=== PATIENT | male | born 1980 | race Caucasian/White ===

== ENCOUNTER 2018-10-09 08:21 | Day surgery (SDC) | payer OTHER, SELFPAY ==
[2018-10-09] VITALS (9 sets, daily range): BP systolic 106–126; BP diastolic 64–87; PULSE 61–91; RESP 10–21; TEMP 36.3–36.8; O2SAT 97–100; BMI 25.8
[2018-10-09] MEDS: LACTATED RINGERS 1,000 ML 42 ML IV (08:40)
--- NOTE | 2018-10-09 08:45 | PM.HP.1 ---
History of Present Illness Date Patient Seen: 10/09/18 Time Patient Seen: 08:46 Chief complaint: 62253/HERNIA Narrative: 38-year-old male who presented with left a groin mass recently and associated pain. Mass was reducible however when he was supine. He had no nausea or vomiting. Continues to have no issues with such. Nevertheless he continues to have pressure and occasional persistent discomfort in the groin area radiating to the testicle when he is performing exercise or strenuous activity. No difficulties with urination or bowel function. No fever or chills. No symptoms in the right inguinal region. Patient History Family & Social History Social History: household members spouse,children Tobacco & Substance use: Smoking Status Current some day smoker alcohol intake never Meds Home Medications Medication Instructions Recorded Confirmed Type No Known Home Medications 10/09/18 10/09/18 History Allergies Allergy/AdvReac Type Severity Reaction Status Date / Time No Known Drug Allergies Allergy Verified 10/09/18 08:34 Review of Systems Review of Systems All systems reviewed & are unremarkable except as noted in HPI and below Exam Vital Signs (past 8 hours): - 10/09/18 08:38 Temperature 97.5 F L Pulse Rate 72 Respiratory Rate 15 Blood Pressure 126/82 Pulse Oximetry 100 Oxygen Delivery Method Room Air Narrative Exam Narrative: Well-nourished well-developed male in no acute distress. Alert oriented x3 Sclera nonicteric Chest clear to auscultation without wheezes. Regular rate and rhythm Abdomen soft, nondistended, nontender Extremities show no clubbing or cyanosis Left inguinal hernia remains unchanged compared to his examination in August 2018. Lesion is reducible but tender on palpation. Testicles are descended. Well-healed left inguinal scar consistent with prior hernia repair at age 7 years. Extremities show no clubbing, cyanosis, or edema Objective Labs Labs: No new laboratory or radiographic studies for review Assessment & Plan Assessment & Plan narrative: 38-year-old male with symptomatic reducible left inguinal hernia. Hernias actually recurrent as it was repaired when he was a child. Discussed technical details once again of open left inguinal hernia repair with mesh. Risks, benefits, alternatives were reiterated. Postoperative restrictions were again reviewed. All questions were answered to his satisfaction, and he voiced understanding. Consent was placed on the chart. We will proceed today as planned. Again, his history physical examination otherwise has remained unchanged from August 2018.
--- NOTE | 2018-10-09 08:49 | PM.PREOP ---
Pre-operative Note Interval Note History & Physical reviewed/Exam performed by Physician: Yes Changes to H&P: No H&P completed within 30 days and has changed as indicated here:: Patient seen and examined once again in the preoperative area. He is marked for surgery accordingly. History physical examination updated today and on the chart. Obviously no changes from this morning. Proceed today with left inguinal hernia repair as planned.
[2018-10-09] MEDS: CEFAZOLIN 2 GM/100 ML FROZ.PIGGY IV (08:58)
--- NOTE | 2018-10-09 09:20 | SUR.OPER ---
Supine on padded OR bed, head on pillow, arms secured on padded arm boards at <90 degrees abduction, legs uncrossed, safety belt at thigh, tape over blanket over lower legs.
[2018-10-09] MEDS: LIDOCAINE 1% W/EPI INJ 20 ML INJ (09:27)
[2018-10-09] MEDS: BUPIVACAINE 0.5% (PF) VIAL 30 ML INJ (09:27)
[2018-10-09] MEDS: CEFAZOLIN 1 GM VIAL IV (09:28)
--- NOTE | 2018-10-09 10:33 | P.OP_ITS ---
Operative Date/Time/Diagnoses Date of procedure: 10/09/18 Time of procedure: 10:26 Pre-op diagnosis: Symptomatic recurrent left inguinal hernia Post-op diagnosis: same Procedure & Clinicians Procedure: Open left inguinal hernia repair with mesh Same procedure as scheduled: Yes Indications: 38-year-old male who presented with intermittent left inguinal mass causing pain and discomfort. Examination and evaluation were consistent with reducible hernia. Hernia was actually recurrent as the patient had primary repair at the age of 7 years. Open repair with mesh was currently recommended. Surgeon: Tiago Caro Click Yes if Unassisted: Yes Anesthesia Type: General Operative Notes Findings: 1. Left indirect hernia 2. No evidence of left direct hernia 3. Intact left ilioinguinal nerve 4. Testicles are normal descended position bilaterally at the conclusion of the case Closure Type: primary Specimen(s): none sent Prosthetic devices, grafts, tissues, transplants, or devices: Small Pro Loop polypropylene mesh plug and patch left inguinal canal Applied: other (As above) Estimated Blood Loss (mL): 5 Blood products transfused: none Procedure in detail: After obtaining informed consent the patient was brought to the operating room placed supine on the table. After satisfactory induction of anesthesia the abdomen and genitalia were prepped and draped in usual sterile f ashion. SCOA time out was performed per standard protocol. Patient's existing left inguinal scar was identified and infiltrated with a 1: 1 mixture 1% lidocaine with 1: 100,000 epinephrine and 0.5% plain Marcaine for postoperative analgesia. Skin incision was created with 10 scalpel blade and the Bovie was used to achieve hemostasis. Dissection was carried down carefully through the subcutaneous tissue and existing scar to the level the external oblique fascia. Exposure was achieved with a Weitlaner retractor. External oblique fascia was divided in the direction of its fibers with a 15 scalpel blade followed by Metzenbaum scissors through the level of the external inguinal ring. Great care was taken to avoid injury to underlying structures. Edges of the fascia were secured with hemostats and elevated into the operative field. Ilioinguinal nerve was identified and noted to be intact but scarred into the external oblique fascia. Meticulous gentle sharp dissection with Metzenbaum scissors liberated the nerve and it was retracted out of the operative field. Great care was taken avoid injury to the structure throughout the entire case. Further blunt dissection revealed the iliopubic tract, conjoined tendon, and rectus fascia. The spermatic cord was encircled bluntly with the surgeon's fingers followed by a Hollywood drain. Meticulous blunt dissection using DeBakey forceps was employed to skeletonize the spermatic cord. A few cremasteric fibers were divided with the Bovie. Findings are as above. Indirect hernia sac was mobilized from surrounding connective tissue and easily reduced back into the abdominal cavity. Mesh was brought onto the operative field and soaked in Ancef solution. Plug was then placed in the internal inguinal ring and secured circumferentially to adjacent tissue with interrupted 2 0 Vicryl suture. Onlay patch was then brought onto the operative field and secured circumferentially with interrupted 0 Ethibond suture. Anteriorly the mesh was secured to the conjoined tendon while laterally was secured to the iliopubic tract. Medially the mesh was secured to the rectus fascia, and the tails of the mesh were brought around the spermatic cord then placed deep to the external oblique fascia. Tails were cut to appropriate size and secured with a single 0 Ethibond suture. Great care was taken to avoid strangulation of the spermatic cord by the mesh. The defect easily admitted the tip of the surgeon's examining finger. Wound was irrigated and hemostasis noted. Spermatic cord was replaced into its usual anatomic position along with the ilioinguinal nerve. External oblique fascia was closed over the cord using running 3 0 Vicryl suture. Subcutaneous tissue was reapproximated with interrupted 3 0 Vicryl suture as well. Skin was closed in running subcuticular fashion with 4 0 Monocryl suture. Dermal adhesive was applied. Anesthesia was reversed and patient extubated in the operating room. He was taken recovery stable condition. Complications: none Condition: stable Disposition: PACU Plan for aftercare: 1. Discharge home 2. Follow up in surgery Clinic in 2 weeks
--- NOTE | 2018-10-09 10:42 | SUR.PHASEI ---
aroused spontaneously, decilnes PO, denies pain. Returned to sleep. Resp even and regular, skin warm and dry.
--- NOTE | 2018-10-09 11:00 | SUR.PHASEI ---
1155 to room 5, bed down, locked, call light within reach. coming to room w/volunteer. VS being taken by SALES SERVICE SUPERVISOR. Report given to RN and SALES SERVICE SUPERVISOR. Awake/drowsy. Oriented and comfortable.
== END 2018-10-09 11:51 | disposition home or self-care (01) ==
PROVIDERS: Visit Provider Surgery
PROC: (CPT 49520; principal; 2018-10-09 09:45)
DX: K40.90 Unilateral inguinal hernia, without obstruction or gangrene, not specified as recurrent (principal); F17.210 Nicotine dependence, cigarettes, uncomplicated
CPT/HCPCS: 49520; C1781; J0690; J1100; J2250; J2704; J3010

== ENCOUNTER 2020-03-05 22:49 | Emergency (ER) | payer OTHER, SELFPAY ==
[2020-03-05] VITALS (12 sets, daily range): BP systolic 113–163; BP diastolic 70–100; PULSE 51–57; RESP 13–18; TEMP 36.5; O2SAT 96–100
--- NOTE | 2020-03-05 23:06 | DI.RAD.S_ITS ---
PROCEDURE: XR CHEST 1V INDICATIONS: chest pain TECHNIQUE: One view of the chest was acquired. COMPARISON: None. FINDINGS: Surgical changes and devices: None. Lungs and pleura: Lungs are clear. No pleural effusions or pneumothorax. Mediastinum: Mediastinal contours appear normal. Heart size is normal. Bones and chest wall: No suspicious bony lesions. Overlying soft tissues appear unremarkable. IMPRESSION: No acute cardiopulmonary disease process. Dictated by: Roxanne Carlos MD, PhD on 03/06/2020 at 8:47 Approved by: Roxanne Carlos MD, PhD on 03/06/2020 at 8:48
[2020-03-05] MEDS: ASPIRIN 81 MG CHEW TAB 324 MG PO (23:13)
[2020-03-05] MEDS: NITROGLYCERIN 0.4 MG SL TAB SL (23:13)
[2020-03-05] MEDS: SODIUM CHLORIDE 0.9% 1,000 ML 150 ML IV (23:16)
[2020-03-05 23:19] LABS: Add Manual Diff / Slide Review NO; Basophils Absolute Auto 0 /uL (0-100); Basophils Percent Auto 0.7 % (0-2); Eosinophils Absolute Auto 100 /uL (0-450); Eosinophils Percent Auto 2.7 % (2-4); Hematocrit 42.4 % (41-53); Hemoglobin 14.2 g/dL (13.5-17.5); Lymphocytes Absolute Auto 1300 /uL (1100-4500); Lymphocytes Percent Auto 33.9 % (25-40); Mean Corpuscular HGB Conc 33.6 % (30-36); Mean Corpuscular Volume 92.2 fL (80-100); Monocytes Absolute Auto 400 /uL (0-900); Monocytes Percent Auto 10.6 % (3-14); Neutrophils Absolute Auto 1900 /uL (1500-7000); Neutrophils Percent Auto 52.1 % (50-75); Platelet Count 205 X10^3/uL (150-400); Red Blood Cell Count 4.59 X10^6/uL (4.5-5.9); Red Cell Distribution Width 13.4 % (11.6-14.8); White Blood Cell Count 3.7 X10^3/uL (4.5-11.0)
[2020-03-05 23:26] LABS: Alanine Aminotransferase 24 IU/L (<50); Albumin 4.4 g/dL (3.5-5.0); Albumin Globulin Ratio 1.5 (1.0-2.8); Alkaline Phosphatase 58 U/L (38-126); Aspartate Aminotransferase 46 IU/L (17-59); BUN Creatinine Ratio 29.4 (6-22); Bilirubin Total 0.5 mg/dL (0.2-1.3); Blood Urea Nitrogen 25 mg/dL (9-20); Calcium 9.6 mg/dL (8.4-10.2); Carbon Dioxide 32 mmol/L (22-32); Chloride 102 mmol/L (98-107); Creatine Kinase 156 U/L (55-170); Estimated Glomerular Filt Rate > 60.0 mL/min (>60); Glucose 102 mg/dL (70-100); HEMOLYSIS 17 (0-50); Lipase 102 U/L (23-300); Potassium 3.8 mmol/L (3.4-5.1); Sodium 138 mmol/L (137-145); Total Protein 7.4 g/dL (6.3-8.2)
[2020-03-05 23:29] LABS: C-Reactive Protein Quant < 0.5 mg/dL (<1.0)
[2020-03-05 23:34] LABS: D Dimer 757 ng/mL (<230)
[2020-03-05 23:38] LABS: Erythrocyte Sedimentation Rate 4 MM/HR (0-15); NT-proBNP (BNP-Adult 18+) 84 pg/mL (<125); Troponin I < 0.012 ng/mL (0.01-0.034)
[2020-03-05 23:41] LABS: CKMB % Relative Index 0.6 % (1.5-5.0)
[2020-03-06] VITALS (12 sets, daily range): BP systolic 110–121; BP diastolic 74–85; PULSE 46–51; RESP 11–21; O2SAT 96–99
--- NOTE | 2020-03-06 00:11 | ED_ITS ---
HPI - Chest Pain General Chief Complaint: Chest Pain Stated Complaint: Chest pain Time Seen by Provider: 03/05/20 22:50 Source: patient Mode of arrival: Ambulatory Limitations: no limitations History of Present Illness HPI narrative: 39M non smoker without any significant medical history presents with a chief complaint of a day and a half of gradually worsening left anterior chest pain. He states it radiates a bit across his anterior chest. He denies any dizziness, weakness or lightheadedness. He has no shortness of breath. He states that it seems to get worse when he takes big deep breath or moves. He de nies fever or chills. Denies cough or hemoptysis. He denies any recent travel or history of blood clot. [place] and had what sound like normal labs and EKGs and was given Toradol encouraged to follow up if needed. He denies any exposure to persons known to have COVID-19 MD complaint: chest pain Onset (ago): day(s) Duration: constant Onset: during rest Pain location: left chest Severity: moderate Quality: aching and sharp Pain radiation: none Relieving factors: nothing Exacerbating factors: supine Treatments prior to arrival chest pain: other Related Data Previous Rx's Medication Instructions Recorded gabapentin 300 mg capsule 300 mg PO BID #60 cap 12/17/18 amitriptyline 10 mg tablet 10 mg PO BEDTIME #30 tab 01/08/19 colchicine 0.6 mg PO BID 90 Days #180 cap 03/06/20 ibuprofen 800 mg PO TID PRN #20 tab 03/06/20 Allergies Allergy/AdvReac Type Severity Reaction Status Date / Time No Known Drug Allergies Allergy Verified 12/17/18 13:52 Review of Systems Constitutional Constitutional: Denies chills, Denies fatigue, Denies fever(s), Denies frequent falls, Denies lethargy and Denies weakness Eyes Eyes: Denies change in vision, Denies eye discharge, Denies irritation and Denies loss of vision ENT Ears, Nose, Mouth, and Throat: Denies change in voice, Denies dizziness, Denies neck pain, Denies sore throat and Denies throat swelling Cardiovascular Cardiovascular: Reports chest pain, Denies irregular heart rhythm, Denies lightheadedness, Denies palpitations, Denies dyspnea, Denies dyspnea on exertion and Denies orthopnea Respiratory Respiratory: Denies cough, Denies dyspnea, Denies dyspnea on exertion and Denies wheezing Gastrointestinal Gastrointestinal: Denies abdominal pain, Denies change in bowel habits, Denies diarrhea, Denies nausea and Denies vomiting Musculoskeletal Musculoskeletal: Denies neck pain and Denies numbness Integumentary/Breasts Skin/Breast: Denies pruritus, Denies erythema, Denies rash and Denies wounds Neurologic Neurologic: Denies behavioral changes, Denies confusion, Denies dizziness, Gerald es frequent falls, Denies loss of vision, Denies numbness and Denies weakness Psychiatric Psychiatric: Denies anxiety, Denies behavioral changes, Denies confusion, Denies depression, Denies homicidal ideation and Denies suicidal ideation Endocrine Endocrine: Denies fatigue, Denies flushing and Denies palpitations Hematologic/Lymphatic Hematologic/Lymphatic: Denies easy bruising Allergic/Immunologic Allergic/Immunologic: Denies urticaria, Denies throat swelling and Denies wheezing Patient History Medical History History of hydrocele (Acute) Spondylolisthesis (Acute) Surgical History History of hydrocelectomy (Acute) History of left inguinal hernia repair (Acute) Family History Grandfather Diabetes mellitus Social History marital status: household members: spouse and children occupational status: employed Smoking Status: Never smoker alcohol intake: never Smoking Status: Never smoker alcohol intake frequency: holidays/special occasions only Substance Use Type: does not use Exam Narrative Exam Narrative: GENERAL: [39] year old patient appears stated age. Well- nourished, well-developed patient, in mild distress. Obviously uncomfortable HEAD: Atraumatic. Normocephalic. EYES: Pupils equal round and reactive. Extraocular motions intact. No scleral icterus. No injection or drainage. ENT: Nose without bleeding, purulent drainage. Throat without erythema, tonsillar hypertrophy or exudate. Airway patent. NECK: Trachea midline. Non tender CARDIOVASCULAR: Regular rate and rhythm without murmurs, gallops, or rubs. RESPIRATORY: Clear to auscultation. Breath sounds equal bilaterally. No wheezes, rales, or rhonchi. GASTROINTESTINAL: Abdomen soft, non-tender, nondistended. EXTREMITIES: No edema or joint tenderness. BACK: Nontender without deformity or crepitance. No flank tenderness. NEURO: AOx3. SKIN: No rash or erythema of visible areas Initial Vital Signs Initial Vital Signs: Vital Signs Temperature 97.7 F 03/05/20 22:59 Pulse Rate 54 L 03/05/20 22:59 Respiratory Rate 16 03/05/20 22:59 Blood Pressure 163/100 H 03/05/20 22:59 Pulse Oximetry 100 03/05/20 22:59 Course Orders Ordered: ED Orders 03/05/20 22:57 C-Reactive Protein Quant Stat Complete Blood Count AUTO DIFF Stat Comprehensive Metabolic Panel Stat D Dimer Stat Erythrocyte Sedimentation Rate Stat Lipase Stat NT-proBNP (BNP-Adult 18+) Stat Troponin & CK Cardiac Panel Stat 03/05/20 23:06 XR chest 1V Stat 03/06/20 00:35 CT angio chest PE protocol Stat 03/06/20 01:28 Troponin I Stat Sodium Chloride (Normal Saline 0.9%) 1,000 mls @ 150 mls/hr IV CONT JHON Last Admin: 03/05/20 23:16 Dose: 150 mls/hr Documented by: TIM Nitroglycerin (Nitrostat) 0.4 mg SL [id number] PRN PRN Reason: Chest Pain Last Admin: 03/05/20 23:13 Dose: 0.4 mg Documented by: TIM Discontinued Medications Hydrocodone Bitart/Acetaminophen (Vicodin 5/325 Prepack) 1 bottle MISC SEEINSTR ONE Stop: 03/06/20 02:45 Aspirin (Aspirin Chew) 324 mg PO NOW ONE Stop: 03/05/20 23:07 Last Admin: 03/05/20 23:13 Dose: 324 mg Documented by: TIM Hydromorphone HCl (Dilaudid) 0.5 mg IV NOW ONE Stop: 03/06/20 00:25 Last Admin: 03/06/20 00:29 Dose: 0.5 mg Documented by: CATARINA Ketorolac Tromethamine (Toradol) 15 mg IV NOW ONE Stop: 03/06/20 00:00 Last Admin: 03/06/20 00:30 Dose: Not Given Documented by: CATARINA Consultations Consultation #1: Discussion with on-call Cardiology. She has reviewed the patient's story, labs an EKG and sure the opinion that this is pericarditis. Patient has near complete resolution of symptoms after above-stated therapies and is appropriate for discharge. She recommends colchicine 0.6 mg twice daily for 3 months and stress the need to not miss any doses. Secondly she recommends anti-inflammatories such as 800 mg p.o. t.i.d. as needed and follow up with his PCP Vital Signs Vital signs: Vital Signs - 8 hr 03/05/20 22:59 03/05/20 23:07 03/05/20 23:13 Temperature 97.7 F Pulse Rate 54 L 51 L 52 L Respiratory Rate 16 15 Blood Pressure 163/100 H 142/84 H Pulse Oximetry 100 100 03/05/20 23:14 03/05/20 23:22 03/05/20 23:25 Temperature Pulse Rate 52 L 55 L 57 L Respiratory Rate 18 17 18 Blood Pressure 138/84 116/71 117/70 Pulse Oximetry 100 97 98 03/05/20 23:30 03/05/20 23:35 03/05/20 23:40 Temperature Pulse Rate 54 L 51 L 51 L Respiratory Rate 17 16 13 Blood Pressure 121/75 119/77 115/78 Pulse Oximetry 97 97 97 03/05/20 23:45 03/05/20 23:50 03/05/20 23:55 Temperature Pulse Rate 52 L 52 L 53 L Respiratory Rate 15 16 18 Blood Pressure 118/77 113/77 117/77 Pulse Oximetry 96 97 96 03/06/20 00:00 03/06/20 00:05 03/06/20 00:10 Temperature Pulse Rate 50 L 50 L 51 L Respiratory Rate 15 14 11 L Blood Pressure 116/76 118/76 110/74 Pulse Oximetry 96 96 97 03/06/20 00:15 03/06/20 00:20 03/06/20 00:25 Temperature Pulse Rate 50 L 50 L 48 L Respiratory Rate 15 15 12 Blood Pressure 111/75 111/74 116/77 Pulse Oximetry 96 97 97 03/06/20 00:30 03/06/20 00:35 03/06/20 00:56 Temperature Pulse Rate 50 L 51 L 50 L Respiratory Rate 17 16 15 Blood Pressure 117/78 119/78 121/85 Pulse Oximetry 97 96 96 03/06/20 01:00 03/06/20 01:05 03/06/20 02:23 Temperature Pulse Rate 47 L 48 L 46 L Respiratory Rate 15 21 16 Blood Pressure 120/77 121/78 115/79 Pulse Oximetry 96 96 99 MDM - Chest Pain Lab Data Result diagrams: 03/05/20 22:57 03/05/20 22:57 Labs: Lab Results 03/05/20 03/05/20 03/05/20 Range/Units 22:57 22:57 22:57 WBC 3.7 L (4.5-11.0) X10^3/uL RBC 4.59 (4.5-5.9) X10^6/uL Hgb 14.2 (13.5-17.5) g/dL Hct 42.4 (41-53) % MCV 92.2 (80-100) fL MCH 31.0 (26-34) PG MCHC 33.6 (30-36) % RDW 13.4 (11.6-14.8) % Plt Count 205 (150-400) X10^3/uL Neut % (Auto) 52.1 (50-75) % Lymph % (Auto) 33.9 (25-40) % [place] % (Auto) 10.6 (3-14) % Eos % (Auto) 2.7 (2-4) % Baso % (Auto) 0.7 (0-2) % Neut # (Auto) 1900 (1631-1691) /uL Lymph # (Auto) 1300 (6847-4734) /uL [place] # (Auto) 400 (0-900) /uL Eos # (Auto) 100 (0-450) /uL Baso # (Auto) 0 (0-100) /uL ESR (0-15) MM/HR D-Dimer 757 H (<230) ng/mL Sodium 138 (137-145) mmol/L Potassium 3.8 (3.4-5.1) mmol/L Chloride 102 (98-107) mmol/L Carbon Dioxide 32 (22-32) mmol/L BUN 25 H (9-20) mg/dL Creatinine 0.85 (0.66-1.25) mg/dL Estimated GFR > 60.0 (>60) mL/min BUN/Creatinine Ratio 29.4 H (6-22) Glucose 102 H (70-100) mg/dL Calcium 9.6 (8.4-10.2) mg/dL Total Bilirubin 0.5 (0.2-1.3) mg/dL AST 46 (17-59) IU/L ALT 24 (<50) IU/L Alkaline Phosphatase 58 (38-126) U/L Total Creatine Kinase 156 (55-170) U/L CK-MB (CK-2) 0.90 (<2.37) ng/mL CK-MB (CK-2) Rel Index 0.6 L (1.5-5.0) % Troponin I < 0.012 (0.01-0.034) ng/mL C-Reactive Protein (<1.0) mg/dL NT-Pro-B Natriuret Pep 84 (<125) pg/mL Total Protein 7.4 (6.3-8.2) g/dL Albumin 4.4 (3.5-5.0) g/dL Globulin 3.0 (1.7-4.1) g/dL Albumin/Globulin Ratio 1.5 (1.0-2.8) Lipase 102 (23-300) U/L 03/05/20 03/05/20 03/06/20 Range/Units 22:57 22:57 01:28 WBC (4.5-11.0) X10^3/uL RBC (4.5-5.9) X10^6/uL Hgb (13.5-17.5) g/dL Hct (41-53) % MCV (80-100) fL MCH (26-34) PG MCHC (30-36) % RDW (11.6-14.8) % Plt Count (150-400) X10^3/uL Neut % (Auto) (50-75) % Lymph % (Auto) (25-40) % [place] % (Auto) (3-14) % Eos % (Auto) (2-4) % Baso % (Auto) (0-2) % Neut # (Auto) (0200-2844) /uL Lymph # (Auto) (9932-3516) /uL [place] # (Auto) (0-900) /uL Eos # (Auto) (0-450) /uL Baso # (Auto) (0-100) /uL ESR 4 (0-15) MM/HR D-Dimer (<230) ng/mL Sodium (137-145) mmol/L Potassium (3.4-5.1) mmol/L Chloride (98-107) mmol/L Carbon Dioxide (22-32) mmol/L BUN (9-20) mg/dL Creatinine (0.66-1.25) mg/dL Estimated GFR (>60) mL/min BUN/Creatinine Ratio (6-22) Glucose (70-100) mg/dL Calcium (8.4-10.2) mg/dL Total Bilirubin (0.2-1.3) mg/dL AST (17-59) IU/L ALT (<50) IU/L Alkaline Phosphatase (38-126) U/L Total Creatine Kinase (55-170) U/L CK-MB (CK-2) (<2.37) ng/mL CK-MB (CK-2) Rel Index (1.5-5.0) % Troponin I < 0.012 (0.01-0.034) ng/mL C-Reactive Protein < 0.5 (<1.0) mg/dL NT-Pro-B Natriuret Pep (<125) pg/mL Total Protein (6.3-8.2) g/dL Albumin (3.5-5.0) g/dL Globulin (1.7-4.1) g/dL Albumin/Globulin Ratio (1.0-2.8) Lipase (23-300) U/L Imaging Data CT scan - chest: Radiologist's Impression: NAP ECG Data Attestation: I personally reviewed and interpreted this ECG as follows: Interpretation: NSR with widespread, minimal ST elevations and HI depressions c/w pericarditis. Rate 57. No ectopy. Discharge Plan Departure Patient Disposition: Home Clinical Impression: Pericarditis Qualifiers: Pericarditis type: idiopathic Chronicity: acute Qualified Code(s): I30.0 - Acute nonspecific idiopathic pericarditis Instructions: DI for Pericarditis Activity Restrictions/Additional Instructions: *You have been diagnosed with [pericarditis] *What to do: *Take medications as directed *Follow up with your primary care provider in 2-3 days, call for an appointment. Let them know you were seen in the Emergency Department and that we ask that you be seen in follow up *Return to ER if you should have any new, worsening or concerning symptoms Prescriptions: New colchicine 0.6 mg capsule 0.6 mg PO BID 90 Days Qty: 180 RF: 0 ibuprofen 800 mg tablet 800 mg PO TID PRN (Reason: pain) Qty: 20 RF: 0 No Action amitriptyline 10 mg tablet 10 mg PO BEDTIME Qty: 30 RF: 0 gabapentin 300 mg capsule 300 mg PO BID Qty: 60 RF: 0 Referrals: Adebayo Briceno MD [Primary Care Provider] -
[2020-03-06] MEDS: HYDROMORPHONE 0.5 MG INJ IV (00:29)
--- NOTE | 2020-03-06 00:35 | DI.CT.S_ITS ---
PROCEDURE: CT ANGIO CHEST PE PROTOCOL INDICATIONS: Chest pain, elevated D-dimer TECHNIQUE: After the administration of intravenous contrast, 2 mm thick sections acquired from the pulmonary apices to the posterior costophrenic angles. 3-dimensional maximum intensity projection (MIP) coronal and sagittal reformats were then acquired through the thorax. For radiation dose reduction, the following was used: automated exposure control, adjustment of mA and/or kV according to patient size. COMPARISON: None. FINDINGS: Image quality: Excellent. Pulmonary arteries: Pulmonary arteries are normal in size, and demonstrate no intraluminal filling defects to suggest central pulmonary embolism. Lungs and pleura: Lungs are clear. No pleural effusions or pneumothorax. Central and peripheral airways are patent. Mediastinum: Heart size is normal, without pericardial effusion. No mediastinal or hilar adenopathy. Thoracic aorta is normal in caliber and enhancement. Esophagus is normal in caliber, without hiatal hernia. Bones and chest wall: No suspicious bony lesions. Ribs and thoracic spine appear intact throughout. Thyroid gland is normal. No axillary or supraclavicular adenopathy. Abdomen: Punctate calcifications compatible with sequela of prior granulomatous disease noted in the visualized spleen. Visualized upper abdominal solid organs appear normal in the early arterial phase of enhancement. IMPRESSION: 1. No pulmonary embolus. 2. No lung consolidation or pleural effusions. Dictated by: Roxanne Carlos MD, PhD on 03/06/2020 at 7:08 Approved by: Roxanne Carlos MD, PhD on 03/06/2020 at 7:10
[2020-03-06 01:58] LABS: Troponin I < 0.012 ng/mL (0.01-0.034)
[2020-03-06] MEDS: HYDROCODONE/ACET 5/325 PREPACK 1 BOTTLE MISC (02:51)
== END 2020-03-06 03:00 | disposition home or self-care (01) ==
PROVIDERS: Emergency Provider Emergency Medicine
DX: I30.0 Acute nonspecific idiopathic pericarditis (principal); R07.9 Chest pain, unspecified; R79.89 Other specified abnormal findings of blood chemistry
CPT/HCPCS: 36415; 71045; 71275; 80053; 82550; 82553; 83690; 83880; 84484; 85025; 85379; 85651; 86140; 93005; 96361; 96374; 99284; 99285; J1170; Q9967